=== PATIENT | male | born 1955 | race Two or more races ===

== ENCOUNTER 2023-04-29 06:13 | Inpatient (IN) | payer OTHER ==
[~2023-04-29] VITALS: Ht 180.3 cm; Wt 108.0 kg
[~2023-04-29 06:13] MED LIST: ASCO500T11 PO; ASPI81CH59 PO; CHOLTAB12 PO; LEVO25TA6 PO; MAGN1CAP2 PO; METO25TA36 PO; MULT-1018 OR; ROSU20TA14 PO; SACU1TAB7 PO
[2023-04-29] MEDS ORDERED: ceFAZolin 1GM/50ML 100 ML IV ONE (06:29)
[2023-04-29] MEDS ORDERED: ACETAMINOPHEN IV 100 ML IV ONE (06:30)
[2023-04-29] MEDS ORDERED: ACETAMINOPHEN IV 1000 MG/100ML (10MG/ML) IV ONE (06:30)
[2023-04-29] MEDS ORDERED: CELECOXIB 100 MG CAP PO ONE (06:30)
[2023-04-29] MEDS ORDERED: PREGABALIN CAPSULE 75 MG CAP PO ONE (06:30)
[2023-04-29] MEDS ORDERED: TRANEXAMIC ACID 20 ML ONE (06:40)
[2023-04-29] MEDS ORDERED: VANCOMYCIN HCL 1000 MG VL ONE (06:41)
[2023-04-29] MEDS ORDERED: SUCCINYLCHOLINE CHLORIDE 20 MG/ML 10ML VIAL IV ONE (07:02)
[2023-04-29] MEDS ORDERED: ROCURONIUM 10MG/ML 10ML VIAL IV ONE (07:02)
[2023-04-29] MEDS ORDERED: TETRACAINE 1% INJ 2 ML VIAL IJ ONE (07:02)
[2023-04-29] MEDS ORDERED: DexAMETHasone SOD PHOS 4 MG/1ML SDV INJ ONE (07:17)
[2023-04-29] MEDS ORDERED: EPINEPHrine HCL 1 MG/1 ML AMP ONE ×2 (07:17→07:20)
[2023-04-29] MEDS ORDERED: BUPIVACAINE 0.25% INJ 50ML VIAL ONE ×2 (07:17→08:07)
[2023-04-29] MEDS ORDERED: MIDAZOLAM HCL 2MG/2ML 2ml VIAL (1mg/ml) ONE (07:18)
[2023-04-29] MEDS ORDERED: fentaNYL CITRATE 100 MCG/2 ML VL ONE (07:18)
[2023-04-29] MEDS ORDERED: BUPIVACAINE/DEXTROSE MPF 0.75% 2 ML AMP IT ONE (07:20)
[2023-04-29] MEDS ORDERED: SODIUM CHLORIDE LOCK 10 ML ONE (07:20)
[2023-04-29] MEDS ORDERED: ONDANSETRON HCL 4 MG/2 ML VIAL ONE (07:20)
[2023-04-29] MEDS ORDERED: PROPOFOL 10 MG/ML 20 ML IV ONE ×2 (07:20→09:03)
[2023-04-29] MEDS ORDERED: DexAMETHasone SOD PHOS 10MG/1ML VIAL INJ ONE (07:20)
[2023-04-29] MEDS ORDERED: KETOROLAC TROMETH 30 MG/ML 1ML VIAL ONE (08:08)
[2023-04-29] MEDS ORDERED: MORPHINE SULF PF 5 MG/10 ML VIAL ONE (08:08)
[2023-04-29] MEDS ORDERED: HYDROmorphone HCL 2 MG/ML VL/or syr IV PRN ×3 (08:30→10:00)
[2023-04-29] MEDS ORDERED: MORPHINE SULFATE INJ 2 MG/ml SYRG IV PRN ×2 (08:30→10:00)
[2023-04-29] MEDS ORDERED: METOCLOPRAMIDE HCL 5MG/ml INJ 2ml VIAL IV PRN (08:30)
[2023-04-29 09:46] VITALS: PULSE 63; RESP 15; O2SAT 94
[2023-04-29] MEDS ORDERED: ONDANSETRON HCL 4 MG/2 ML VIAL IV PRN (10:00)
[2023-04-29] MEDS ORDERED: OXYCODONE W/ ACETAMINOPHEN 5/325MG TABLET PO PRN (10:00)
[2023-04-29] MEDS ORDERED: NITROGLYCERIN 0.4 MG SL TAB SL PRN (10:00)
[2023-04-29] MEDS: ePHEDrine SULFATE 50 MG/ML AMP IV PRN ×3 (10:30→11:20)
[2023-04-29 12:26] LABS: Calcium 8.1 mg/dL (8.5-10.1); Potassium 4.3 mmol/L (3.5-5.1)
[2023-04-29] MEDS: ENOXAPARIN SOD 40 MG/0.4 ML SYRINGE SC SCH (13:56)
[2023-04-29] MEDS: MULTIPLE VITAMIN TAB PO SCH (13:56)
[2023-04-29] MEDS: KETOROLAC TROMETH 30 MG/ML 1ML VIAL IV SCH ×2 (13:57→22:15)
[2023-04-29] MEDS: MAGNESIUM CITRATE PO SCH (13:58)
[2023-04-29] MEDS: CHOLECALCIFEROL 100 MCG PO SCH (13:58)
[2023-04-29 15:04] VITALS: BP 89/56; PULSE 76; RESP 18; TEMP 97.5; O2SAT 94
[2023-04-29] MEDS: ceFAZolin 1GM/50ML 50 ML IV SCH ×2 (16:50→22:12)
[2023-04-29 17:27] VITALS: BP 106/64; PULSE 67; RESP 18; TEMP 97.8; O2SAT 92
[2023-04-29 20:00] VITALS: BP 110/68; PULSE 65; RESP 18; TEMP 98.2
[2023-04-29 20:18] VITALS: PULSE 95; RESP 18; O2SAT 92
[2023-04-29 22:00] VITALS: BP 87/45; PULSE 73; RESP 18; TEMP 98.2; O2SAT 93
[2023-04-29] MEDS ORDERED: ATORVASTATIN 20 MG TAB PO SCH (22:00)
[2023-04-29] MEDS: SACUBITRIL-VALSARTAN 24mg/26mg TAB PO SCH (22:00)
[2023-04-29] MEDS ORDERED: LEVOTHYROXINE SODIUM 25 MCG TAB PO SCH (22:00)
[2023-04-29] MEDS: PANTOPRAZOLE 40 MG TAB PO SCH (22:12)
[2023-04-30 05:00] VITALS: BP 87/47; PULSE 72; RESP 18; TEMP 98; O2SAT 92
[2023-04-30] MEDS: KETOROLAC TROMETH 30 MG/ML 1ML VIAL IV SCH (05:14)
[2023-04-30 08:00] VITALS: BP 82/49; PULSE 61; RESP 18; TEMP 97.5; O2SAT 91
[2023-04-30 09:00] VITALS: BP 89/54; PULSE 61; RESP 18; TEMP 97.5; O2SAT 91
[2023-04-30] MEDS: MAGNESIUM CITRATE PO SCH (10:00)
[2023-04-30] MEDS ORDERED: METOPROLOL SUCCINATE XL 50 MG TAB PO SCH (10:00)
[2023-04-30] MEDS: SACUBITRIL-VALSARTAN 24mg/26mg TAB PO SCH (10:00)
[2023-04-30] MEDS: MULTIPLE VITAMIN TAB PO SCH (10:00)
[2023-04-30] MEDS: CHOLECALCIFEROL 100 MCG PO SCH (10:00)
[2023-04-30] MEDS: ENOXAPARIN SOD 40 MG/0.4 ML SYRINGE SC SCH (10:12)
[2023-04-30] MEDS: PANTOPRAZOLE 40 MG TAB PO SCH (10:12)
[2023-04-30] MEDS ORDERED: LEVOTHYROXINE SODIUM 25 MCG TAB PO SCH (10:33)
[2023-04-30 13:00] VITALS: BP 89/50; PULSE 67; RESP 18; TEMP 98; O2SAT 94
[2023-04-30 16:29] VITALS: BP 89/50; PULSE 67; RESP 18; TEMP 98; O2SAT 94
[2023-04-30 16:59] VITALS: BP 88/50; PULSE 56; RESP 19; TEMP 97.9; O2SAT 95
== END 2023-04-30 18:05 | disposition home health service (06) | DRG 470 ==
LOC: SUR 06:13 → OVERFLOW 10:03 → WEST WING 12:55
PROVIDERS: ADMIT Orthopaedic Surgery Adult Reconstructive Orthopaedic Surgery; ATTEND Orthopaedic Surgery Adult Reconstructive Orthopaedic Surgery
PROC: 8E0YXBZ Computer Assisted Procedure of Lower Extremity (ICD-10-PCS; 2023-04-29)
PROC: 0SRD0J9 Replacement of Left Knee Joint with Synthetic Substitute, Cemented, Open Approach (ICD-10-PCS; principal; 2023-04-29 07:23)
DX: M17.32 Unilateral post-traumatic osteoarthritis, left knee (principal)
CPT/HCPCS: 36415; 73562; 80048; 86850; 86900; 86901; 97110; 97116; 97163; 97530; G0378; J0131; J0171; J0330; J0690; J1100; J1885; J2250; J2405; J2704; J3490